=== PATIENT | female | born 1990 | race Caucasian/White ===

== ENCOUNTER → 2017-06-13 | Outpatient (CLI) | payer OTHER | LOC: FIMAGING 08:23 | PROVIDERS: ATTEND Nurse Practitioner | DX: N93.0 Postcoital and contact bleeding (principal); N94.10 Unspecified dyspareunia; Z30.431 Encounter for routine checking of intrauterine contraceptive device ==

== ENCOUNTER 2018-03-01 09:40 | Emergency (ER) | payer OTHER ==
[2018-03-01 09:45] VITALS: BP 98/65
[2018-03-01] MEDS ORDERED: ONDANSETRON DISINTEGRATING 4 MG TAB PO ONE (10:05)
[2018-03-01] MEDS ORDERED: IBUPROFEN 600 MG TAB PO ONE (10:05)
[2018-03-01] MEDS ORDERED: OXYCODONE/APAP 5/325 TAB PO ONE (10:05)
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
== END 2018-03-01 11:26 | disposition home or self-care (01) ==
PROC: 0HQAXZZ Repair Inguinal Skin, External Approach (ICD-10-PCS; principal; 2018-03-01)
DX: S31.41XA Laceration without foreign body of vagina and vulva, initial encounter (principal); V19.9XXA Pedal cyclist (driver) (passenger) injured in unspecified traffic accident, initial encounter; Y99.8 Other external cause status; Y93.89 Activity, other specified